=== PATIENT | male | born 1960 | race Caucasian/White ===

== ENCOUNTER 2017-02-20 18:17 | Emergency (ER) | payer MEDICAID ==
[2017-02-20] MEDS ORDERED: methylPREDNISolone Sodium Succinate 125 MG/2 ML SDV IVPUSH ONE (18:21)
[2017-02-20] MEDS ORDERED: Sodium Chloride 0.9% 10 ML Syringe FLUSH PRN (18:21)
[2017-02-20] MEDS ORDERED: LORazepam 2 MG/ML MDV IVPUSH ONE (18:21)
[2017-02-20] MEDS ORDERED: Sodium Chloride 0.9% 2.5 ML Syringe FLUSH PRN (18:21)
[2017-02-20] MEDS ORDERED: diphenhydrAMINE 50 MG/ML SDV IVPUSH ONE (18:21)
[2017-02-20] MEDS ORDERED: Sodium Chloride 0.9% 1,000 ML IV ONE (18:21)
--- NOTE | 2017-02-20 18:38 | EDM.PDOC ---
<Chelle Greenberg - Last Filed: 02/20/17 19:00> ED HPI GENERAL MEDICAL PROBLEM - General Stated Complaint: DRUG RELATED/OD Time Seen by Provider: 02/20/17 18:31 - History of Present Illness INITIAL COMMENTS - FREE TEXT/NARRATIVE: HISTORY AND PHYSICAL: History of present illness: The patient is a 56-year-old male with a history of hypertension he uses lisinopril and presents with complaints of feeling like he has gagging and that there is something wrong with his throat. The patient says he was out at the leg and was having a perfectly normal day and then he drank some liquid, pop, and it felt somewhat gritty and then he started having the sensation in his throat. He did not feel like there were foreign object specifically in the liquid but he says that he is feeling like he has been given drugs because he's feeling very anxious and he can't stop gagging. The patient has a history of drug use in the past but has not used recently and says that the wheeze feeling now he feels like he was been given an amphetamine or masses. He's fairly very jittery and anxious and feeling like he can't swallow properly. He doesn't have chest pain but he does feel somewhat short of breath. He's not nauseated and has had no abdominal complaints. Patient denies any tongue or lip swelling and has no rash or itching. Patient says that he feels like something in his throat is gagging him persistently. Review of systems: As per history of present illness and below otherwise all systems reviewed and negative. Past medical history: As per history of present illness and as reviewed below otherwise noncontributory. Surgical history: As per history of present illness and as reviewed below otherwise noncontributory. Social history: No reported history of drug or alcohol abuse. Family history: As per history of present illness and as reviewed below otherwise noncontributory. Physical exam: Gen.: Well-developed well-nourished man who is very anxious and persistently self gagging himself on my initial evaluation. He speaking clearly and easily without stridor or voice changes such as hoarse voice or muffled voice. HEENT: Atraumatic, normocephalic, pupils reactive, negative for conjunctival pallor or scleral icterus, mucous membranes moist, he has a visibly swollen uvula which is hanging down dipping below the base of the tongue and there is posterior oral erythema and soft palate erythema diffusely at the surround, the tongue and the lips are not swollen, there is no cervical adenopathy, neck supple, nontender, trachea midline. Lungs: Clear to auscultation, breath sounds equal bilaterally, chest nontender. No wheezing sensory muscle use work of breathing or stridor is appreciated Heart: S1S2, regular rhythm no overt murmurs and the patient is slightly tachycardic on my evaluation Abdomen: Soft, nondistended, nontender. Negative for masses or hepatosplenomegaly. NABS Skin: There is no diaphoresis rashes urticaria or lesions appreciated and turgor is normal Genitourinary: Deferred. Rectal: Deferred. Extremities: Atraumatic, negative for cords or calf pain. Neurovascular unremarkable. Full range of motion without defects or deficits Neuro: Awake, alert, oriented. Cranial nerves II through XII unremarkable. Cerebellum unremarkable. Motor and sensory unremarkable throughout. Exam nonfocal. Diagnostics: Soft tissue neck, patient is specifically requesting a drug screen which I will order Therapeutics: IV fluids Solu-Medrol Benadryl Ativan I discussed with the patient that he may have drank something that was particularly irritating stimulating the inflammation of the uvula but that there is also suspicion that the use of his lisinopril may have triggered this. I will treat him with IV steroids Benadryl and Ativan but I have advised the patient that he should stop his lisinopril and speak with his primary care physician about changing that medication. We will continue to observe the patient and with improvement we will discharge him home with advice to use over- the-counter Benadryl and I will give him prescriptions for prednisone as well as amoxicillin in case this is just a simple uvulitis Impression: Acute uvulitis rule out infectious etiology versus GARETH inhibitor use and angioedema equivalent Definitive disposition and diagnosis as appropriate pending reevaluation and review of above. - Related Data Allergies Allergy/AdvReac Type Severity Reaction Status Date / Time No Known Allergies Allergy Verified 02/20/17 19:18 Home Meds: Home Meds Lisinopril 20 mg PO DAILY #30 tablet 09/23/15 [Rx] Past Medical History - Past Health History Medical/Surgical History: Denies Medical/Surgical History Cardiovascular History: Reports: Hypertension Endocrine/Metabolic History: Reports: Hyperthyroidism - Infectious Disease History Infectious Disease History: Reports: Hepatitis C Other Infectious Disease History: treated in 2009 - Past Surgical History Musculoskeletal Surgical History: Reports: Other (See Below) Social & Family History - Family History Family Medical History: Noncontributory Cardiac: Reports: Hypertension, [place] : Reports: Cystic Kidney Disease Endocrine/Metabolic: Reports: Diabetes, type II Oncologic: Reports: Lung - Tobacco Use Smoking Status *Q: Current Every Day Smoker Years of Tobacco use: 30 Packs/Tins Daily: 0.5 - Recreational Drug Use Recreational Drug Use: Yes Drug Use in Last 12 Months: No Recreational Drug Type: Reports: Cocaine, Heroin, Marijuana/Hashish, Methamphetamine Recreational Drug Use Frequency: Not Used In Over 1 Year ED ROS GENERAL - Review of Systems Review Of Systems: ROS reveals no pertinent complaints other than HPI. ED EXAM, GENERAL - Physical Exam Exam: See Below (See dictation) Course - Vital Signs Last Recorded V/S: Last Vital Signs Temp 36.6 C 02/20/17 19:13 Pulse 117 H 02/20/17 19:13 Resp 18 02/20/17 19:13 BP 193/120 H 02/20/17 19:13 Pulse Ox 95 02/20/17 19:13 - Orders/Labs/Meds Orders: Active Orders 24 hr Category Date Time Status EKG 12 Lead [EKG Documentation Completion] [RC] STAT Care 02/20/17 19:24 Active Neck Soft Tissue [CR] Stat Exams 02/20/17 18:21 Taken Sodium Chloride 0.9% [Saline Flush] Med 02/20/17 18:21 Active 10 ml FLUSH ASDIRECTED PRN Sodium Chloride 0.9% [Saline Flush] Med 02/20/17 18:21 Active 2.5 ml FLUSH ASDIRECTED PRN Saline Lock Insert [OM.PC] Stat Oth 02/20/17 18:21 Ordered Medication Orders Sodium Chloride (Saline Flush) 10 ml FLUSH ASDIRECTED PRN PRN Reason: Keep Vein Open Last Admin: 02/20/17 19:22 Dose: 10 ml Sodium Chloride (Saline Flush) 2.5 ml FLUSH ASDIRECTED PRN PRN Reason: Keep Vein Open Last Admin: 02/20/17 19:22 Dose: 2.5 ml Labs: Laboratory Tests 02/20/17 Range/Units 19:10 Urine Opiates Screen NEGATIVE (NEGATIVE) Ur Oxycodone Screen NEGATIVE (NEGATIVE) Urine Methadone Screen NEGATIVE (NEGATIVE) Ur Barbiturates Screen NEGATIVE (NEGATIVE) Ur Phencyclidine Scrn NEGATIVE (NEGATIVE) Ur Amphetamine Screen POSITIVE (NEGATIVE) U Methamphetamines Scrn POSITIVE (NEGATIVE) U Benzodiazepines Scrn NEGATIVE (NEGATIVE) U Cocaine Metab Screen NEGATIVE (NEGATIVE) U Marijuana (THC) Screen NEGATIVE (NEGATIVE) Meds: Medications Generic Name Dose Route Start Last Admin Trade Name Freq PRN Reason Stop Dose Admin Sodium Chloride 10 ml 02/20/17 18:21 02/20/17 19:22 Saline Flush FLUSH 10 ml ASDIRECTED PRN Administration Keep Vein Open Sodium Chloride 2.5 ml 02/20/17 18:21 02/20/17 19:22 Saline Flush FLUSH 2.5 ml ASDIRECTED PRN Administration Keep Vein Open Discontinued Medications Generic Name Dose Route Start Last Admin Trade Name Freq PRN Reason Stop Dose Admin Diphenhydramine HCl 50 mg 02/20/17 18:21 02/20/17 18:32 Benadryl IVPUSH 02/20/17 18:22 50 mg ONETIME ONE Administration Sodium Chloride 1,000 mls @ 999 mls/hr 02/20/17 18:21 02/20/17 18:31 Normal Saline IV 02/20/17 19:21 999 mls/hr STAT ONE Administration Lorazepam 0.5 mg 02/20/17 18:21 02/20/17 18:43 Ativan IVPUSH 02/20/17 18:22 0.5 mg ONETIME ONE Administration Methylprednisolone Sodium Succinate 125 mg 02/20/17 18:21 02/20/17 18:35 Solu-Medrol IVPUSH 02/20/17 18:22 125 mg ONETIME ONE Administration Departure - Departure Disposition: Home, Self-Care 01 Condition: Good Clinical Impression: Uvulitis, Substance abuse Angioedema Qualifiers: Encounter type: initial encounter Qualified Code(s): T78.3XXA - Angioneurotic edema, initial encounter - Discharge Information Additional Instructions: The following information is given to patients seen in the emergency department who are being discharged to home. This information is to outline your options for follow-up care. We provide all patients seen in our emergency department with a follow-up referral. The need for follow-up, as well as the timing and circumstances, are variable depending upon the specifics of your emergency department visit. If you don't have a primary care physician on staff, we will provide you with a referral. We always advise you to contact your personal physician following an emergency department visit to inform them of the circumstance of the visit and for follow-up with them and/or the need for any referrals to a consulting specialist. The emergency department will also refer you to a specialist when appropriate. This referral assures that you have the opportunity for followup care with a specialist. All of these measure are taken in an effort to provide you with optimal care, which includes your followup. Under all circumstances we always encourage you to contact your private physician who remains a resource for coordinating your care. When calling for followup care, please make the office aware that this follow-up is from your recent emergency room visit. If for any reason you are refused follow-up, please contact the [facility] emergency department at and ask to speak to the emergency department charge nurse. [facility] Primary care- Internal Medicine and Family [address] [address] Please use [id number] Benadryl 50 mg every 6 hours for the next 24-36 hours and then use it every 6 hours as needed. Please take prednisone and amoxicillin as prescribed until it is finished. Please stop your lisinopril use and contact her provider to change that medication. Return to ER as needed and as discussed. - My Orders Last 24 Hours: My Active Orders 02/20/17 19:24 EKG 12 Lead [EKG Documentation Completion] [RC] STAT - Assessment/Plan Last 24 Hours: My Active Orders 02/20/17 19:24 EKG 12 Lead [EKG Documentation Completion] [RC] STAT <Francisco Javier Manrique - Last Filed: 02/20/17 19:50> Departure - Departure Time of Disposition: 19:50
[2017-02-20 22:40] VITALS: BP 170/95
--- NOTE | 2017-02-21 16:39 | CR ---
EXAM DATE: 02/20/17 PATIENT'S AGE: 56 Patient: SAIRA ANDERSON Facility: [place], [place] Site . Site : [id number] Study: XRay ST Neck [id number]/6/2017 7:25:30 PM Ordering Physician: Doctor Arriaga Final Report: Indication: Ingested drugs, swollen uvula. Technique: Single lateral soft tissue neck radiograph. Comparison: None. Findings: The prevertebral soft tissues and airway as imaged are unremarkable. Epiglottis is normal in appearance. No radio-opaque foreign body demonstrated. Postoperative changes involving the mandible. Impression: Unremarkable lateral soft tissue neck radiograph. Dictated by Rachid Sanchez MD @ 02/20/2017 7:51:35 PM Dictated by: Rachid Sanchez MD @ 02/20/2017 19:51:41 (Electronic Signature) Report Signed by Proxy. NOLVIA
== END 2017-02-20 20:04 | disposition home or self-care (01) ==
LOC: MW.ED 18:17
DX: T78.3XXA Angioneurotic edema, initial encounter (principal); K12.2 Cellulitis and abscess of mouth; F19.10 Other psychoactive substance abuse, uncomplicated; I10 Essential (primary) hypertension; E05.90 Thyrotoxicosis, unspecified without thyrotoxic crisis or storm; F17.210 Nicotine dependence, cigarettes, uncomplicated; Z79.899 Other long term (current) drug therapy
CPT/HCPCS: 70360; 80305; 93005; 96361; 96374; 96375; 99283; J1200; J2060; J2930; J7040

== ENCOUNTER 2017-02-21 10:56 | Emergency (ER) | payer MEDICAID ==
[2017-02-21] MEDS ORDERED: Sodium Chloride 0.9% 1,000 ML IV ONE ×2 (11:10→12:17)
[2017-02-21] MEDS ORDERED: LORazepam 2 MG/ML MDV IVPUSH ONE (11:10)
[2017-02-21] MEDS ORDERED: Sodium Chloride 0.9% 2.5 ML Syringe FLUSH PRN (11:10)
[2017-02-21] MEDS ORDERED: Sodium Chloride 0.9% 10 ML Syringe FLUSH PRN (11:10)
--- NOTE | 2017-02-21 11:16 | EDM.PDOC ---
ED HPI GENERAL MEDICAL PROBLEM - General Stated Complaint: AMBULANCE Time Seen by Provider: 02/21/17 11:05 - History of Present Illness INITIAL COMMENTS - FREE TEXT/NARRATIVE: HISTORY AND PHYSICAL: History of present illness: The patient is a 56-year-old male with a history of hypertension and who was seen here yesterday read presents today with ambulance and police saying that he is continuing to feel agitated anxious and feeling like he's having hallucinations after is "accidental ingestion" of methamphetamine and may be something else. The patient presented yesterday stating that he was at the [place] and he drinks some water or pop which she felt was grade he and then he suddenly felt like there was something swollen and gagging him in his throat and he felt very anxious. He said that he has a history of doing methamphetamine in the past but has been clean for many years and he felt like he was on drugs which he didn't like the sensation. On my evaluation yesterday of him he did have an inflamed uvula which may have been due to his lisinopril use or due to a uvulitis which was treated. The patient had requested a drug screen which was positive for amphentermine and methamphetamine and he was given medications here for the uvulitis, Benadryl and Solu-Medrol, as well as Ativan. The patient was discharged home with steroids and recommendations to take Benadryl as well as amoxicillin and he did not fill those prescriptions yet. He presents today after he called police because he is having his feelings like he has high but it is "not like any meth I have ever done before". He is concerned that he ingested bath salts and he is not sure how to handle sensations and feelings he is having. He feels like his heart is racing and he feels discomfort with that but he doesn't feel short of breath. He's had no nausea or vomiting and feels like his mouth is very dry. Patient has not had any trauma since last seen yesterday. Review of systems: As per history of present illness and below otherwise all systems reviewed and negative. Past medical history: As per history of present illness and as reviewed below otherwise noncontributory. Surgical history: As per history of present illness and as reviewed below otherwise noncontributory. Social history: No reported history of drug or alcohol abuse. Family history: As per history of present illness and as reviewed below otherwise noncontributory. Physical exam: Gen.: Well-developed well-nourished man who is very anxious and twitchy in the room and vital signs of the note by me. Temperature orally is 98.6 HEENT: Atraumatic, normocephalic, pupils reactive, negative for conjunctival pallor or scleral icterus, mucous membranes moist, throat clear, neck supple, nontender, trachea midline. There are not injected there is no facial swelling cervical adenopathy or nuchal rigidity Lungs: Clear to auscultation, breath sounds equal bilaterally, chest nontender. There is no work of breathing or sensory muscle use but the patient exhibited some exaggerating breathing intermittently Heart: S1S2, regular rhythm but tachycardic rate 120s on my evaluation, negative for clicks, rubs, or JVD. Abdomen: Soft, nondistended, nontender. Negative for masses or hepatosplenomegaly. Hypoactive bowel sounds Pelvis: Stable nontender. Genitourinary: Deferred. Rectal: Deferred. Extremities: Atraumatic, negative for cords or calf pain. Neurovascular unremarkable. Full range of motion without any defects or deficits Neuro: Awake, alert, oriented. Cranial nerves II through XII unremarkable. Cerebellum unremarkable. Motor and sensory unremarkable throughout. Exam nonfocal. Skin: Normal turgor no evidence of any rashes or lesions and the skin is moist with some diaphoresis on his forehead. Diagnostics: EKG CBC CMP troponin Therapeutics: IV O2 monitor IV fluids Ativan Patient is feeling improved after a liter of IV fluids and he is taking ice water. His heart rate is down to the low 100s and he is currently receiving a second liter of fluid. I've advised him on his slightly low potassium of 3.3 and the need to eat a banana next several days or some green vegetables to supplemented more naturally. I've also advised him of his dehydration with his BUN/creatinine of 26/1.6. He follows at [facility] for his regular care and as he needs to consult them or a replacement for his lisinopril but I told him to stop yesterday he can also have a repeat BUN/creatinine done there to recheck those numbers in the next 1-2 days. He told me that he drinks a lot of caffeinated products and pretty much no water's I've advised him to try to alter that behavior. I've advised him on reasons to return to the ER. He overall appears much calmer and is speaking more clearly without pressured speech. He is aware that I will give him a few tablets of Ativan to take home if he feels like her symptoms are escalating. Impression: Reaction to recent methamphetamine and illicit drug use, clinical and metabolic dehydration improving Definitive disposition and diagnosis as appropriate pending reevaluation and review of above. - Related Data Allergies Allergy/AdvReac Type Severity Reaction Status Date / Time No Known Allergies Allergy Verified 02/21/17 11:01 Home Meds: Home Meds Lisinopril 20 mg PO DAILY #30 tablet 09/23/15 [Rx] Past Medical History - Past Health History Medical/Surgical History: Denies Medical/Surgical History Cardiovascular History: Reports: Hypertension Psychiatric History: Reports: Addiction Endocrine/Metabolic History: Reports: Hyperthyroidism Immunologic History: Reports: Other (See Below) Other Immunologic History: Hep C - Infectious Disease History Infectious Disease History: Reports: Hepatitis C Other Infectious Disease History: treated in 2009 - Past Surgical History HEENT Surgical History: Reports: Tonsillectomy GI Surgical History: Reports: Cholecystectomy Musculoskeletal Surgical History: Reports: Other (See Below) Social & Family History - Family History Family Medical History: Noncontributory Cardiac: Reports: Hypertension, [place] : Reports: Cystic Kidney Disease Endocrine/Metabolic: Reports: Diabetes, type II Oncologic: Reports: Lung - Tobacco Use Smoking Status *Q: Current Every Day Smoker Years of Tobacco use: 30 Packs/Tins Daily: 0.5 - Caffeine Use Caffeine Use: Reports: None - Recreational Drug Use Recreational Drug Use: Yes Drug Use in Last 12 Months: Yes Recreational Drug Type: Reports: Marijuana/Hashish Recreational Drug Use Frequency: Socially ED ROS GENERAL - Review of Systems Review Of Systems: ROS reveals no pertinent complaints other than HPI. ED EXAM, GENERAL - Physical Exam Exam: See Below (see dictation) Course - Vital Signs Last Recorded V/S: Last Vital Signs Temp 37.0 C 02/21/17 11:16 Pulse 128 H 02/21/17 11:01 Resp 18 02/21/17 11:01 BP 192/127 H 02/21/17 11:01 Pulse Ox 98 02/21/17 11:01 - Orders/Labs/Meds Orders: Active Orders 24 hr Category Date Time Status Cardiac Monitoring [RC] . DIRECTED Care 02/21/17 11:09 Active EKG Documentation Completion [] STAT Care 02/21/17 11:09 Active Oxygen Therapy, ED [] ASDIRECTED Care 02/21/17 11:09 Active Pulse Oximetry [] ASDIRECTED Care 02/21/17 11:09 Active Sodium Chloride 0.9% [Normal Saline] 1,000 ml Med 02/21/17 12:17 Active IV STAT Sodium Chloride 0.9% [Saline Flush] Med 02/21/17 11:10 Active 10 ml FLUSH ASDIRECTED PRN Sodium Chloride 0.9% [Saline Flush] Med 02/21/17 11:10 Active 2.5 ml FLUSH ASDIRECTED PRN Saline Lock Insert [OM.PC] Stat Oth 02/21/17 11:09 Ordered Medication Orders Sodium Chloride (Normal Saline) 1,000 mls @ 999 mls/hr IV STAT ONE Stop: 02/21/17 13:17 Sodium Chloride (Saline Flush) 10 ml FLUSH ASDIRECTED PRN PRN Reason: Keep Vein Open Last Admin: 02/21/17 11:36 Dose: 10 ml Sodium Chloride (Saline Flush) 2.5 ml FLUSH ASDIRECTED PRN PRN Reason: Keep Vein Open Last Admin: 02/21/17 11:36 Dose: 2.5 ml Labs: Laboratory Tests 02/21/17 02/21/17 02/21/17 Range/Units 11:28 11:28 11:28 WBC 10.39 (4.0-11.0) K/uL RBC 4.26 L (4.50-5.90) M/uL Hgb 13.9 (13.0-17.0) g/dL Hct 38.1 (38.0-50.0) % MCV 89.4 (80.0-98.0) fL MCH 32.6 H (27.0-32.0) pg MCHC 36.5 (31.0-37.0) g/dL RDW Std Deviation 42.9 (28.0-62.0) fl RDW Coeff of Lluvia 13 (11.0-15.0) % Plt Count 178 (150-400) K/uL MPV 11.00 (7.40-12.00) fL Neut % (Auto) 82.9 H (48.0-80.0) % Lymph % (Auto) 12.3 L (16.0-40.0) % [place] % (Auto) 4.8 (0.0-15.0) % Eos % (Auto) 0.0 (0.0-7.0) % Baso % (Auto) 0.0 (0.0-1.5) % Neut # (Auto) 8.6 H (1.4-5.7) K/uL Lymph # (Auto) 1.3 (0.6-2.4) K/uL [place] # (Auto) 0.5 (0.0-0.8) K/uL Eos # (Auto) 0.0 (0.0-0.7) K/uL Baso # (Auto) 0.0 (0.0-0.1) K/uL Nucleated RBC % 0.0 /100WBC Nucleated RBCs # 0 K/uL Sodium 143 (136-146) mmol/L Potassium 3.3 L (3.5-5.1) mmol/L Chloride 108 (98-110) mmol/L Carbon Dioxide 21 (21-31) mmol/L BUN 26 H (6.0-23.0) mg/dL Creatinine 1.6 H (0.6-1.5) mg/dL Est Cr Clr Drug Dosing 64.80 mL/min Estimated GFR (MDRD) 45.3 ml/min Glucose 140 H (60-110) mg/dL Calcium 9.9 (8.8-10.8) mg/dL Total Bilirubin 1.0 (0.1-1.5) mg/dL AST 48 H (5-40) IU/L ALT 52 (8-54) IU/L Alkaline Phosphatase 115 (40-150) Troponin I < 0.10 (0.0-0.29) NG/ML Total Protein 7.8 (6.0-8.0) g/dL Albumin 4.3 (3.5-5.0) g/dL Globulin 3.5 (2.0-3.5) g/dL Albumin/Globulin Ratio 1.2 L (1.3-2.8) Meds: Medications Generic Name Dose Route Start Last Admin Trade Name Freq PRN Reason Stop Dose Admin Sodium Chloride 1,000 mls @ 999 mls/hr 02/21/17 12:17 Normal Saline IV 02/21/17 13:17 STAT ONE Sodium Chloride 10 ml 02/21/17 11:10 02/21/17 11:36 Saline Flush FLUSH 10 ml ASDIRECTED PRN Administration Keep Vein Open Sodium Chloride 2.5 ml 02/21/17 11:10 02/21/17 11:36 Saline Flush FLUSH 2.5 ml ASDIRECTED PRN Administration Keep Vein Open Discontinued Medications Generic Name Dose Route Start Last Admin Trade Name Lasha PRN Reason Stop Dose Admin Sodium Chloride 1,000 mls @ 999 mls/hr 02/21/17 11:10 02/21/17 11:35 Normal Saline IV 02/21/17 12:10 999 mls/hr STAT ONE Administration Lorazepam 1 mg 02/21/17 11:10 02/21/17 11:39 Ativan IVPUSH 02/21/17 11:11 1 mg ONETIME ONE Administration Departure - Departure Time of Disposition: 12:51 Disposition: Home, Self-Care 01 Condition: Good Clinical Impression: Methamphetamine use, Dehydration Drug reaction Qualifiers: Encounter type: subsequent encounter Qualified Code(s): T88.7XXD - Unspecified adverse effect of drug or medicament, subsequent encounter - Discharge Information Additional Instructions: The following information is given to patients seen in the emergency department who are being discharged to home. This information is to outline your options for follow-up care. We provide all patients seen in our emergency department with a follow-up referral. The need for follow-up, as well as the timing and circumstances, are variable depending upon the specifics of your emergency department visit. If you don't have a primary care physician on staff, we will provide you with a referral. We always advise you to contact your personal physician following an emergency department visit to inform them of the circumstance of the visit and for follow-up with them and/or the need for any referrals to a consulting specialist. The emergency department will also refer you to a specialist when appropriate. This referral assures that you have the opportunity for followup care with a specialist. All of these measure are taken in an effort to provide you with optimal care, which includes your followup. Under all circumstances we always encourage you to contact your private physician who remains a resource for coordinating your care. When calling for followup care, please make the office aware that this follow-up is from your recent emergency room visit. If for any reason you are refused follow-up, please contact the [facility] emergency department at and ask to speak to the emergency department charge nurse. [facility] [address] [place] [id number] Please contact your provider at [facility] for follow-up and advice regarding stopping your lisinopril and a replacement for that blood pressure medication. Please fill the prescriptions you're given yesterday for prednisone and amoxicillin and start taking them. Please use [id number] Benadryl for swelling of the uvula as we discussed yesterday. Please use the Ativan you have been prescribed today as needed for increased or heightened anxiety and did not use any drugs or drink or take any products that you are not sure of their content. Please return to ER as needed and as discussed area when you follow-up with your provider at [facility] please have your blood work repeated to assure that your kidney function has normalized from the dehydration. - My Orders Last 24 Hours: My Active Orders 02/21/17 11:09 Cardiac Monitoring [RC] . DIRECTED EKG Documentation Completion [RC] STAT Oxygen Therapy, ED [RC] ASDIRECTED Pulse Oximetry [RC] ASDIRECTED Saline Lock Insert [OM.PC] Stat 02/21/17 11:10 Sodium Chloride 0.9% [Saline Flush] 10 ml FLUSH ASDIRECTED PRN Sodium Chloride 0.9% [Saline Flush] 2.5 ml FLUSH ASDIRECTED PRN 02/21/17 12:17 Sodium Chloride 0.9% [Normal Saline] 1,000 ml IV STAT - Assessment/Plan Last 24 Hours: My Active Orders 02/21/17 11:09 Cardiac Monitoring [RC] . DIRECTED EKG Documentation Completion [RC] STAT Oxygen Therapy, ED [RC] ASDIRECTED Pulse Oximetry [RC] ASDIRECTED Saline Lock Insert [OM.PC] Stat 02/21/17 11:10 Sodium Chloride 0.9% [Saline Flush] 10 ml FLUSH ASDIRECTED PRN Sodium Chloride 0.9% [Saline Flush] 2.5 ml FLUSH ASDIRECTED PRN 02/21/17 12:17 Sodium Chloride 0.9% [Normal Saline] 1,000 ml IV STAT
[2017-02-21 14:45] VITALS: BP 130/85
== END 2017-02-21 14:18 | disposition home or self-care (01) ==
LOC: MW.ED 10:56
DX: E86.0 Dehydration (principal); F19.90 Other psychoactive substance use, unspecified, uncomplicated; T43.625A Adverse effect of amphetamines, initial encounter; F17.210 Nicotine dependence, cigarettes, uncomplicated; E05.90 Thyrotoxicosis, unspecified without thyrotoxic crisis or storm; Z90.49 Acquired absence of other specified parts of digestive tract; Z79.899 Other long term (current) drug therapy; Z98.890 Other specified postprocedural states
CPT/HCPCS: 36415; 80053; 84484; 85025; 93005; 96361; 96374; 99285; J2060; J7040; 99283

== ENCOUNTER 2017-08-23 10:35 | Day surgery (SDC) | payer MEDICAID ==
[~2017-08-23 10:35] MED LIST: Lactated Ringers 1,000 ML IV SCH; Lidocaine 2% 5 ML SDV ONE; Propofol 200 MG/20 ML SDV ONE
--- NOTE | 2017-08-23 11:19 | PCM.PREANE ---
Preanesthetic Assessment - Anesthesia/Transfusion/Family Hx Anesthesia History: Prior Anesthesia Reaction ("flat lined" during sedation or anesthesia for dental extractions) Other Type of Anesthesia Reaction Comment: "flat lined during oral surgery" Transfusion History: No Prior Transfusion(s) - Review of Systems General: No Symptoms Pulmonary: No Symptoms Cardiovascular: No Symptoms Gastrointestinal: No Symptoms Neurological: No Symptoms Other: Reports: None - Physical Assessment NPO Status Date: 08/22/17 O2 Sat by Pulse Oximetry: 95 Respiratory Rate: 16 Vital Signs: Last Vital Signs Temp 36 C 08/23/17 10:42 Pulse 95 08/23/17 10:42 Resp 16 08/23/17 10:42 BP 151/97 H 08/23/17 10:42 Pulse Ox 95 08/23/17 10:42 Height: 1.91 m Weight: 110.223 kg ASA Class: 2 Mental Status: Alert & Oriented x3 Dentition: Reports: Dentures ROM/Head Extension: Full Lungs: Clear to Auscultation, Normal Respiratory Effort Cardiovascular: Regular Rate, Regular Rhythm - Allergies Allergies/Adverse Reactions: Allergies Allergy/AdvReac Type Severity Reaction Status Date / Time No Known Allergies Allergy Verified 08/20/17 11:57 - Anesthesia Plan Pre-Op Medication Ordered: None - Acknowledgements Anesthesia Type Planned: MAC Pt an Appropriate Candidate for the Planned Anesthesia: Yes Alternatives and Risks of Anesthesia Discussed w Pt/Guardian: Yes Pt/Guardian Understands and Agrees with Anesthesia Plan: Yes PreAnesthesia Questionnaire - Past Health History Medical/Surgical History: Denies Medical/Surgical History HEENT History: Reports: Retinal Detachment, Other (See Below) Other HEENT History: upper and lower denture Cardiovascular History: Reports: Hypertension, Other (See Below) Other Cardiovascular History: palpatations Gastrointestinal History: Reports: Hepatitis Other Gastrointestinal History: hx hepatitis C, treated in 2008 Genitourinary History: Reports: None Musculoskeletal History: Reports: Fracture Neurological History: Reports: Concussion Psychiatric History: Reports: Addiction Endocrine/Metabolic History: Reports: Hypothyroidism Hematologic History: Reports: None Immunologic History: Reports: Other (See Below) Other Immunologic History: Hep C- treated in 2008 Oncologic (Cancer) History: Reports: None Dermatologic History: Reports: None - Infectious Disease History Infectious Disease History: Reports: Hepatitis C Other Infectious Disease History: treated in 2009 - Past Surgical History Head Surgeries/Procedures: Reports: None HEENT Surgical History: Reports: Eye Surgery, Tonsillectomy Other HEENT Surgeries/Procedures: surgery for detached retina, hx jaw surgery GI Surgical History: Reports: Cholecystectomy Neurological Surgical History: Reports: None Musculoskeletal Surgical History: Reports: Other (See Below) Other Musculoskeletal Surgeries/Procedures:: surgery for fx left ankle and fx left tib-fib - SUBSTANCE USE Smoking Status *Q: Current Every Day Smoker Tobacco Use Within Last Twelve Months: Cigarettes Recreational Drug Use History: Yes Recreational Drug Type: Reports: Marijuana/Hashish - HOME MEDS Home Medications: Home Meds Levothyroxine 25 mcg PO DAILY 08/20/17 [History] amLODIPine Besylate [Amlodipine Besylate] 5 mg PO DAILY 08/20/17 [History] - CURRENT (IN HOUSE) MEDS Current Meds: Current Medications Lactated Ringer's (Ringers, Lactated) 1,000 mls @ 125 mls/hr IV ASDIRECTED [facility] Last Admin: 08/23/17 10:48 Dose: 125 mls/hr Discontinued Medications Lidocaine (Xylocaine-Mpf 2%) Confirm Administered Dose 5 ml .ROUTE .STK-MED ONE Stop: 08/23/17 09:41 Propofol (Diprivan 20 Ml) Confirm Administered Dose 400 mg .ROUTE .STK-MED ONE Stop: 08/23/17 09:42
[2017-08-23] MEDS ORDERED: Propofol 200 MG/20 ML SDV ONE (12:22)
[2017-08-23] MEDS ORDERED: Ondansetron 4 MG Tab.DIS PO PRN (12:42)
--- NOTE | 2017-08-23 12:45 | PCM.OPNOTE ---
- General Post-Op/Procedure Note Date of Surgery/Procedure: 08/23/17 Operative Procedure(s): Colonoscopy with cold rectal polypectomy Pre Op Diagnosis: Intermittent rectal bleeding. Desire for colorectal cancer screening. Post-Op Diagnosis: Rectal polyp. Sigmoid diverticulosis. Internal hemorrhoids. Anesthesia Technique: MAC (ASA II) Underground Supervisor: Adolfo Edwards Condition: Good Free Text/Narrative:: Dictation [id number] CPT CODE [id number]
[2017-08-23] MEDS ORDERED: Lactated Ringers 1,000 ML IV SCH (13:00)
[2017-08-23 13:29] VITALS: BP 144/82
--- NOTE | 2017-08-23 13:32 | PCM48HPAN ---
Post Anesthesia Note - EVALUATION WITHIN 48HRS OF ANESTHETIC Vital Signs in Normal Range: Yes Patient Participated in Evaluation: Yes Respiratory Function Stable: Yes Airway Patent: Yes Cardiovascular Function Stable: Yes Hydration Status Stable: Yes Pain Control Satisfactory: Yes Nausea and Vomiting Control Satisfactory: Yes Mental Status Recovered: Yes Resp Rate: 14
--- NOTE | 2017-08-23 13:32 | PCM.POSTAN ---
POST ANESTHESIA ASSESSMENT - MENTAL STATUS Mental Status: Alert, Oriented - RESPIRATORY Respiratory Status: Respiratory Rate WNL, Airway Patent, O2 Saturation Stable - CARDIOVASCULAR CV Status: Pulse Rate WNL, Blood Pressure Stable - GASTROINTESTINAL GI Status: No Symptoms - POST OP HYDRATION Hydration Status: Adequate & Stable
--- NOTE | 2017-08-23 15:54 | OR ---
SURGEON: Ash Torres M.D. DATE OF PROCEDURE: 08/23/2017 OPERATION PERFORMED: Colonoscopy with cold rectal polypectomy. ANESTHESIA: MAC. ASA CLASSIFICATION: II. GAS PROVER: Dr. Edwards, PGY3. PREOPERATIVE DIAGNOSES: 1. Intermittent rectal bleeding. 2. Need for colorectal cancer screening. POSTOPERATIVE DIAGNOSES: 1. Rectal polyp. 2. Mild sigmoid diverticulosis. 3. Internal hemorrhoids. DESCRIPTION OF PROCEDURE: The patient was taken to the endoscopy room, positioned on the endoscopy table in the left lateral decubitus position. Time-out was called for appropriate identification of the patient and procedure. Monitored anesthesia care was provided. The colonoscope was inserted into the rectum and advanced with minimal difficulty to the cecum where the colonoscope was retroflexed to visualize the ascending colon from below. The colonoscope was then straightened and slowly withdrawn. The prep was only fair with a moderate amount of retained fecal material. Certainly, a very small polyp could be missed. The cecum, ascending colon, hepatic flexure, transverse colon, splenic flexure, and descending colon showed no obvious tumors, polyps, diverticula, or angiodysplastic changes. There was no evidence of neoplasia. Once the colonoscope was withdrawn to the sigmoid colon, there were a few small scattered diverticula. No stricture, spasm, or bleeding was noted. Once the colonoscope was withdrawn to the rectum, one small polyp was encountered and removed with the cold biopsy forceps. The colonoscope was retroflexed to visualize the anal orifice from above. No tumors or polyps were seen. The patient does have hemorrhoids that were not actively bleeding at this time. The colonoscope was then straightened, the rectum aspirated, and the colonoscope removed. The patient tolerated the procedure well and was taken to recovery room in stable condition. ABDULLAHI KUNZ /[id number]
== END 2017-08-23 13:03 | disposition home or self-care (01) ==
LOC: MW.SDS 10:35
PROVIDERS: ATTEND Surgery
DX: K62.1 Rectal polyp (principal); K57.30 Diverticulosis of large intestine without perforation or abscess without bleeding; K64.8 Other hemorrhoids; Z79.899 Other long term (current) drug therapy; F17.200 Nicotine dependence, unspecified, uncomplicated
CPT/HCPCS: 45380; J7120; 00811; 88305; J2704

== ENCOUNTER 2020-12-22 02:16 | Emergency (ER) | payer MEDICAID, OTHER ==
--- NOTE | 2020-12-22 02:32 | EDM.PDOC ---
ED HPI GENERAL MEDICAL PROBLEM - General Chief Complaint: Cardiovascular Problem Stated Complaint: HIGH BLOOD PRESSURE Time Seen by Provider: 12/22/20 02:35 - History of Present Illness INITIAL COMMENTS - FREE TEXT/NARRATIVE: History of present illness: [] Review of systems: As per history of present illness and below otherwise all systems reviewed and negative. Past medical history: As per history of present illness and as reviewed below otherwise noncontributory. Patient woke up and said "hey". They came and checked his blood pressure and it was elevated at 166/120. The patient said in retrospect he may feel little lightheaded. He has been off his blood pressure medicine for more than a month. Since he was last seen here and was on amlodipine and thyroid replacement he has been on lisinopril 10 mg a day. Surgical history: As per history of present illness and as reviewed below otherwise noncontributory. Social history: No reported history of drug or alcohol abuse. Family history: As per history of present illness and as reviewed below otherwise noncontributory. Physical exam: Constitutional - well developed, well-nourished and in no acute distress HEENT - normocephalic, no evidence of trauma - external nose and mouth normal - no mass in neck and no JVD - mucosae moist EYES - full EOM, PERRL, no icterus - no evidence of inflammation, injection, or drainage Respiratory - no respiratory distress, equal bilateral expansion, lungs clear to auscultation and no abnormal lung sounds Cardiovascular - Regular Rhythm with S1 and S2 appreciated and no murmur, gallop or rub. GI - abdomen soft without distension or organomegaly - normal bowel sounds - no guard or rebound Musculoskeletal no gross deformity of long bones or joints - no tenderness, swelling or edema Neurologic - Alert and oriented times four - CN II-XII grossly intact - motor sensory and coordination symmetrically normal Psychiatric - appropriate mood and affect with normal thought content Hematologic - No petechiae or purpura - mucosa appropriate color and sclera not pale - normal nail bed color and refill Integument - no rash or evidence of trauma - normal turgor Diagnostics: [] Therapeutics: [] Impression: [] Plan: [] Definitive disposition and diagnosis as appropriate pending reevaluation and review of above. - Related Data Allergies Allergy/AdvReac Type Severity Reaction Status Date / Time No Known Allergies Allergy Verified 08/20/17 11:57 Home Meds: Home Meds Levothyroxine 25 mcg PO DAILY 08/20/17 [History] amLODIPine Besylate [Amlodipine Besylate] 5 mg PO DAILY 08/20/17 [History] lisinopriL [Lisinopril] 10 mg PO DAILY #30 tablet 12/22/20 [Rx] Past Medical History - Past Health History Medical/Surgical History: Denies Medical/Surgical History HEENT History: Reports: Retinal Detachment, Other (See Below) Other HEENT History: upper and lower denture Cardiovascular History: Reports: Hypertension, Other (See Below) Other Cardiovascular History: palpatations Gastrointestinal History: Reports: Hepatitis Other Gastrointestinal History: hx hepatitis C, treated in 2008 Genitourinary History: Reports: None Musculoskeletal History: Reports: Fracture Neurological History: Reports: Concussion Psychiatric History: Reports: Addiction Endocrine/Metabolic History: Reports: Hypothyroidism Hematologic History: Reports: None Immunologic History: Reports: Other (See Below) Other Immunologic History: Hep C- treated in 2008 Oncologic (Cancer) History: Reports: None Dermatologic History: Reports: None - Infectious Disease History Infectious Disease History: Reports: Hepatitis C Other Infectious Disease History: treated in 2009 - Past Surgical History Head Surgeries/Procedures: Reports: None HEENT Surgical History: Reports: Eye Surgery, Tonsillectomy Other HEENT Surgeries/Procedures: surgery for detached retina, hx jaw surgery GI Surgical History: Reports: Cholecystectomy Neurological Surgical History: Reports: None Musculoskeletal Surgical History: Reports: Other (See Below) Other Musculoskeletal Surgeries/Procedures:: surgery for fx left ankle and fx left tib-fib Social & Family History - Family History Family Medical History: No Pertinent Family History Cardiac: Reports: Hypertension, [place] : Reports: Cystic Kidney Disease Endocrine/Metabolic: Reports: Diabetes, type II Oncologic: Reports: Lung - Caffeine Use Caffeine Use: Reports: Coffee, Soda - Recreational Drug Use Recreational Drug Type: Reports: Marijuana/Hashish ED ROS GENERAL - Review of Systems Review Of Systems: Comprehensive ROS is negative, except as noted in HPI. ED EXAM, GENERAL - Physical Exam Exam: See Below Free Text/Narrative:: My physical exam is in the HPI Course - Vital Signs Text/Narrative:: 0315 hrs. blood pressure trending down Last Recorded V/S: Last Vital Signs Temp 36.4 C 12/22/20 02:24 Pulse 91 12/22/20 02:24 Resp 17 07/08/21 02:24 BP 169/124 H 12/22/20 02:44 Pulse Ox 96 12/22/20 02:24 - Orders/Labs/Meds Meds: Medications Discontinued Medications Generic Name Dose Route Start Last Admin Trade Name Lasha PRN Reason Stop Dose Admin Clonidine HCl 0.1 mg 12/22/20 02:40 12/22/20 02:44 Clonidine 0.1 Mg Tab PO 12/22/20 02:41 0.1 mg ONETIME ONE Administration Departure - Departure Time of Disposition: 03:16 Disposition: Home, Self-Care 01 Condition: Good Clinical Impression: Hypertension Qualifiers: Hypertension type: unspecified secondary hypertension Qualified Code(s): I15.9 - Secondary hypertension, unspecified Prescriptions: lisinopriL [Lisinopril] 10 mg PO DAILY #30 tablet Instructions: Hypertension, Adult, [id number] Referrals: Kassie Au NP [Primary Care Provider] - Forms: ED Department Discharge Additional Instructions: Your medications were sent to service [facility] [address] [place] [address] [place] [address] The following information is given to patients seen in the emergency department who are being discharged to home. This information is to outline your options for follow-up care. We provide all patients seen in our emergency department with a follow-up referral. The need for follow-up, as well as the timing and circumstances, are variable depending upon the specifics of your emergency department visit. If you don't have a primary care physician on staff, we will provide you with a referral. We always advise you to contact your personal physician following an emergency department visit to inform them of the circumstance of the visit and for follow-up with them and/or the need for any referrals to a consulting specialist. The emergency department will also refer you to a specialist when appropriate. This referral assures that you have the opportunity for follow-up care with a specialist. All of these measure are taken in an effort to provide you with optimal care, which includes your follow-up. Under all circumstances we always encourage you to contact your private physician who remains a resource for coordinating your care. When calling for follow-up care, please make the office aware that this follow-up is from your recent emergency room visit. If for any reason you are refused follow-up, please contact the [facility] Emergency Department at and asked to speak to the emergency department charge nurse. Sepsis Event Note (ED) - Evaluation Sepsis Screening Result: No Definite Risk - Focused Exam Vital Signs: Vital Signs Temp Pulse Resp BP BP Pulse Ox 12/22/20 02:44 169/124 H 12/22/20 02:24 36.4 C 91 17 169/124 H 96
[2020-12-22] MEDS ORDERED: cloNIDine 0.1 MG Tab PO ONE (02:40)
[2020-12-22 03:19] VITALS: BP 159/109; PULSE 82
== END 2020-12-22 03:19 | disposition home or self-care (01) ==
LOC: MW.ED 02:16
DX: I15.9 Secondary hypertension, unspecified (principal); E03.9 Hypothyroidism, unspecified; Z79.899 Other long term (current) drug therapy
CPT/HCPCS: 99283; A9270